=== PATIENT | female | born 1995 | race Caucasian/White ===

== ENCOUNTER → 2017-01-31 | Outpatient (REF) | payer BC | LOC: M LAB REF 16:25 | PROVIDERS: ATTEND Physician Assistant | DX: J02.9 Acute pharyngitis, unspecified (principal) ==

== ENCOUNTER → 2017-09-29 | Outpatient (REF) | payer BC | LOC: M SFHCWAGY 11:54 | PROVIDERS: ATTEND Nurse Practitioner Women's Health | DX: Z12.4 Encounter for screening for malignant neoplasm of cervix (principal) ==

== ENCOUNTER → 2017-11-04 | Outpatient (REF) | payer BC ==
[2017-11-04 14:07] LABS: BASO % 0.3 % (0.0-1.0); EOS # 0.2 10^3/uL (0.0-0.50); EOS % 2.1 % (0.0-3.0); HEMATOCRIT 42.5 % (36.0-47.0); HEMOGLOBIN 14.4 g/dl (12.0-16.0); IMMATURE GRANULOCYTE % 0.1 % (0-0); LYMPH # 2.3 10^3/uL (1.5-6.5); LYMPH % 31.6 % (24.0-44.0); MEAN CORPUSCULAR HEMOGLOBIN 29.8 pg (27.0-33.0); MEAN CORPUSCULAR HGB CONC 33.9 g/dl (32.0-36.5); MEAN CORPUSCULAR VOLUME 87.8 fl (80.0-96.0); MONO # 0.5 10^3/uL (0.0-0.8); MONO % 6.7 % (0.0-5.0); NEUTROPHILS # 4.2 10^3/uL (1.8-7.7); NEUTROPHILS % 59.2 % (36.0-66.0); PLATELET COUNT, AUTOMATED 244 10^3/uL (150-450); RED BLOOD COUNT 4.84 10^6/uL (4.00-5.40); RED CELL DISTRIBUTION WIDTH 11.9 % (11.5-14.5); WHITE BLOOD COUNT 7.2 10^3/uL (4.0-10.0)
[2017-11-04 14:45] LABS: ALBUMIN 4.2 GM/DL (3.2-5.2); ALBUMIN/GLOBULIN RATIO 1.35 (1.00-1.93); ALKALINE PHOSPHATASE 55 U/L (45-117); ALT/SGPT 24 U/L (12-78); ANION GAP 6 MEQ/L (8-16); AST/SGOT 11 U/L (7-37); BILIRUBIN,TOTAL 0.5 MG/DL (0.2-1.0); BLOOD UREA NITROGEN 10 MG/DL (7-18); CARBON DIOXIDE LEVEL 30 MEQ/L (21-32); CHLORIDE LEVEL 106 MEQ/L (98-107); CREATININE FOR GFR 0.72 MG/DL (0.55-1.02); FREE T4 1.23 NG/DL (0.76-1.46); GLOMERULAR FILTRATION RATE > 60.0 (>60); GLUCOSE, FASTING 74 MG/DL (70-100); MAGNESIUM LEVEL 2.3 MG/DL (1.8-2.4); POTASSIUM SERUM 3.9 MEQ/L (3.5-5.1); SODIUM LEVEL 142 MEQ/L (136-145); TOTAL PROTEIN 7.3 GM/DL (6.4-8.2)
== END ==
LOC: M SFHCPLAZ 11:08
DX: R19.7 Diarrhea, unspecified (principal); R00.2 Palpitations; F41.9 Anxiety disorder, unspecified
CPT/HCPCS: 83735

== ENCOUNTER → 2018-11-28 | Outpatient (REF) | payer OTHER ==
[2018-11-28 16:21] LABS: HEMATOCRIT 43.8 % (36.0-47.0); HEMOGLOBIN 14.6 g/dl (12.0-15.5); MEAN CORPUSCULAR HGB CONC 33.3 g/dl (32.0-36.5); MEAN CORPUSCULAR VOLUME 87.1 fl (80.0-96.0); PLATELET COUNT, AUTOMATED 281 10^3/uL (150-450); RED BLOOD COUNT 5.03 10^6/uL (4.00-5.40); WHITE BLOOD COUNT 10.9 10^3/uL (4.0-10.0)
[2018-11-28 16:23] LABS: ALBUMIN 3.9 GM/DL (3.2-5.2); ALT/SGPT 34 U/L (12-78); BILIRUBIN,TOTAL 0.3 MG/DL (0.2-1.0); BLOOD UREA NITROGEN 13 MG/DL (7-18); CALCIUM LEVEL 8.6 MG/DL (8.5-10.1); CARBON DIOXIDE LEVEL 26 MEQ/L (21-32); CHLORIDE LEVEL 106 MEQ/L (98-107); CREATININE FOR GFR 0.73 MG/DL (0.55-1.30); FREE T4 0.98 NG/DL (0.76-1.46); GLOMERULAR FILTRATION RATE > 60.0 (>60); GLUCOSE, FASTING 112 MG/DL (70-100); POTASSIUM SERUM 4.3 MEQ/L (3.5-5.1); SODIUM LEVEL 140 MEQ/L (136-145); TOTAL 25(OH) VITAMIN D 18.4 NG/ML (30.0-100.0); TOTAL PROTEIN 7.2 GM/DL (6.4-8.2)
== END ==
LOC: M SFHCPLAZ 13:25
PROVIDERS: ATTEND Physician Assistant
DX: F41.9 Anxiety disorder, unspecified (principal); E55.9 Vitamin D deficiency, unspecified

== ENCOUNTER → 2020-06-25 | Outpatient (REF) | payer OTHER ==
[2020-06-25 17:37] LABS: BASO % 0.2 % (0.0-1.0); EOS # 0.1 10^3/uL (0.0-0.5); EOS % 0.5 % (0.0-3.0); HEMATOCRIT 40.5 % (36.0-47.0); HEMOGLOBIN 13.8 g/dl (12.0-15.5); MEAN CORPUSCULAR HEMOGLOBIN 30.2 pg (27.0-33.0); MEAN CORPUSCULAR HGB CONC 34.1 g/dl (32.0-36.5); MEAN CORPUSCULAR VOLUME 88.6 fl (80.0-96.0); MONO # 0.8 10^3/uL (0.0-0.8); MONO % 6.2 % (0.0-5.0); NEUTROPHILS # 8.9 10^3/uL (1.5-8.5); NEUTROPHILS % 69.8 % (36.0-66.0); PLATELET COUNT, AUTOMATED 286 10^3/uL (150-450); RED BLOOD COUNT 4.57 10^6/uL (4.00-5.40); WHITE BLOOD COUNT 12.8 10^3/uL (4.0-10.0)
[2020-06-25 18:55] LABS: HEPATITIS B SURFACE ANTIGEN NEGATIVE (NEGATIVE); HEPATITIS C VIRUS ABY INDEX 0.1 INDEX (<0.8); HIV 1&2 SCREEN CENTAUR NEGATIVE (NEGATIVE)
[2020-06-25 19:11] LABS: CHLAMYDIA DNA AMPLIFICATION NEGATIVE (NEGATIVE); GC DNA AMPLIFICATION NEGATIVE (NEGATIVE)
== END ==
LOC: M SFHCWAGY 16:48
PROVIDERS: ATTEND Specialist
DX: Z34.01 Encounter for supervision of normal first pregnancy, first trimester (principal); Z3A.00 Weeks of gestation of pregnancy not specified

== ENCOUNTER → 2020-09-18 | Outpatient (CLI) | payer OTHER ==
--- NOTE | 2020-09-18 16:10 | REP ---
INDICATION: ANATOMY. COMPARISON: None. TECHNIQUE: Multiple ultrasonographic images. FINDINGS: There is a single intrauterine gestation in a breech presentation. The placenta is anterior and grade 1. There is no placenta previa. The placental course frank cord insertion is in the mid placenta. The cord insertion is unremarkable. There are 3 vessels in the cord. The cervix measures 3.4 cm in length. The composite ultrasound gestational age is 22 weeks 2 days. The SHAUN is 01/20/2021. The weight is 459 g, 1 lb 0 oz. This is the 53rd percentile for 21 weeks 5 days. The following anatomic structures are identified and are unremarkable: Cranium, cavum septum pellucidum, falx, intracranial ventricles, choroid plexus, cerebellum, cisterna magna, facial profile, upper lip, cardiac rhythm, right and left ventricular outflow tracts, diaphragm, stomach, abdominal wall, right and left kidneys, bladder, spine, right and left upper extremities, right and left lower extremities, 3 vessel cord. On the four-chamber view of the heart an echogenic focus is identified within the left ventricle. This is usually artifact from the chorda tendineae. The four-chamber view of the heart is otherwise unremarkable. IMPRESSION: No anomalies are identified. The echogenic focus in the cardiac left ventricle is usually artifact from the chordae tendineae. <Electronically signed by Carlos Elias > 09/18/20 [id number]
== END ==
LOC: M WHC 14:07
PROVIDERS: ATTEND Advanced Practice Midwife
DX: Z34.92 Encounter for supervision of normal pregnancy, unspecified, second trimester (principal); Z3A.22 22 weeks gestation of pregnancy

== ENCOUNTER → 2020-10-27 | Outpatient (REF) | payer OTHER ==
[2020-10-27 13:39] LABS: HEMATOCRIT 41.5 % (36.0-47.0); HEMOGLOBIN 13.5 g/dl (12.0-15.5); MEAN CORPUSCULAR HEMOGLOBIN 30.3 pg (27.0-33.0); MEAN CORPUSCULAR HGB CONC 32.5 g/dl (32.0-36.5); MEAN CORPUSCULAR VOLUME 93.3 fl (80.0-96.0); PLATELET COUNT, AUTOMATED 280 10^3/uL (150-450); RED BLOOD COUNT 4.45 10^6/uL (4.00-5.40); WHITE BLOOD COUNT 14.2 10^3/uL (4.0-10.0)
== END ==
LOC: M PLALAB 09:16
PROVIDERS: ATTEND Advanced Practice Midwife
DX: Z3A.26 26 weeks gestation of pregnancy (principal)

== ENCOUNTER → 2020-12-24 | Outpatient (REF) | payer OTHER | LOC: M PLALAB 10:34 | PROVIDERS: ATTEND Obstetrics & Gynecology | DX: Z3A.35 35 weeks gestation of pregnancy (principal) ==

== ENCOUNTER → 2021-01-07 | Outpatient (REF) | payer BC ==
[2021-01-07 17:48] LABS: HEMATOCRIT 42.1 % (36.0-47.0); HEMOGLOBIN 13.9 g/dl (12.0-15.5); MEAN CORPUSCULAR HEMOGLOBIN 29.3 pg (27.0-33.0); MEAN CORPUSCULAR VOLUME 88.6 fl (80.0-96.0); PLATELET COUNT, AUTOMATED 240 10^3/uL (150-450); RED BLOOD COUNT 4.75 10^6/uL (4.00-5.40); WHITE BLOOD COUNT 13.7 10^3/uL (4.0-10.0)
[2021-01-07 18:04] LABS: ALT/SGPT 42 U/L (12-78); BILIRUBIN,TOTAL 0.2 MG/DL (0.2-1.0); CREATININE FOR GFR 0.61 MG/DL (0.55-1.30); GLOMERULAR FILTRATION RATE > 60.0 (>60); LDH LACTATE DEHYDROGENASE 230 U/L (84-246); URIC ACID 3.9 MG/DL (2.6-6.0)
[2021-01-07 18:07] LABS: TOTAL PROTEIN,RANDOM URINE 33.6 MG/DL (0.0-12.0)
== END ==
LOC: M PLALAB 14:52
PROVIDERS: ATTEND Advanced Practice Midwife
DX: O12.03 Gestational edema, third trimester (principal)

== ENCOUNTER → 2021-01-17 | Outpatient (CLI) | payer BC | LOC: M LABSMTC 11:37 | PROVIDERS: ATTEND Specialist | DX: Z20.822 Contact with and (suspected) exposure to COVID-19 (principal) ==

== ENCOUNTER 2021-01-23 15:28 | Inpatient (IN) | payer BC, OTHER ==
[2021-01-23] VITALS (13 sets, daily range): BP systolic 115–139; BP diastolic 69–90
[~2021-01-23] VITALS: Ht 170.2 cm; Wt 95.1 kg
[2021-01-23] MEDS ORDERED: PRENTAB9 PO (15:57)
[2021-01-23 17:13] LABS: HEMATOCRIT 43.6 % (36.0-47.0); HEMOGLOBIN 14.5 g/dl (12.0-15.5); MEAN CORPUSCULAR HEMOGLOBIN 29.4 pg (27.0-33.0); MEAN CORPUSCULAR HGB CONC 33.3 g/dl (32.0-36.5); MEAN CORPUSCULAR VOLUME 88.3 fl (80.0-96.0); PLATELET COUNT, AUTOMATED 211 10^3/uL (150-450); RED BLOOD COUNT 4.94 10^6/uL (4.00-5.40); WHITE BLOOD COUNT 15.1 10^3/uL (4.0-10.0)
--- NOTE | 2021-01-23 17:46 | HPEPDOC ---
Obstetrical History & Physical General Date of Admission Jan 23, 2021 at 15:28 History of Present Illness Chief Complaint: Contractions, term, LOF, term Information Provided By: Patient Age: 25 : 1 Term: 0 Pre-term: 0 Abortions: 0 Livin Care Care: Good Care Dating Final EDC: Jan 24, 2021 Final EDC by: LMP EGA at Admission: 39 (+6) Antepartum Course Admission Weight (lbs.): 209 Past Medical History Past Obstetrical History : Past Obstetrical History: Primgravida [employer]ER History: No pertinent history Past Medical History Surgical History: Tonsilectomy, [place] teeth Family History Significant Family History: Cancer, Hypertension, Hyperlipidemia Social History Marital Status: Family situation: Spouse/partner home Psychosocial History: Anxiety * Smoker: non-smoker Alcohol: Denies Drugs: denies Abuse Violence Screening Have you been hit/kicked/slapp: No Have you been sexually assault: No Imunizations Tdap status: current Allergies Coded Allergies: No Known Allergies (Verified Allergy, Unknown, 01/23/21) Medications Scheduled No.137/Iron/Folic Acd ( Vitamin Tablet) 1 Each Tablet, 1 TAB PO DAILY Physical Examination Physical Examination GENERAL: Alert and oriented times three. BREAST: . ABDOMEN: Gravid and non-tender to touch. FETUS: Is vertex (VTX) by sterile vaginal examination (SVE), fetus is vertex (VTX) by Jose and bedside sono. EFW 8# HEART RATE: Regular rate and rhythm. LUNGS: Clear to auscultation (CTA). EXTREMITIES: No edema. No clonus. Deep tendon reflexes (DTRs) + 2. Vital Signs/I&O Vital Signs Date Time Temp Pulse Resp B/P (MAP) Pulse Ox O2 Delivery O2 Flow Rate FiO2 01/23/21 16:54 72 18 119/73 (88) 01/23/21 15:51 99.0 Laboratory Data 24H LABS Laboratory Tests 2 01/23/21 15:42: Serology Scanned Report Hepatitis B Testing 01/23/21 16:47: Nucleated Red Blood Cells % (auto) 0.0 CBC/BMP Laboratory Tests 01/23/21 16:47 Pertinent Laboratoy Data Blood Type: A+ RBC Antibody Screen: Negative HIV: Negative Hepatitis B: Negative Hepatitis C: Negative Rapid Plasma Reagin: Nonreactive Rubella: Immune Chlamydia/Gonorrhea: Negative Group B Streptococcus: Negative Glucose Tolerance Test: 84 Diag/Inter Therapy Panorama low risk male, COVID negative 01/17 Anatomy Ultrasound Ultrasound Date: Sep 18, 2020 Placenta Location: Anterior Normal Anatomy: Yes Placenta Previa: No Estimated Weight (grams): 459 (53%) Steroid Therapy Steroid Therapy: No Vaginal Examination Dilation: 1cm Effacement: 50% Station: -3 Cervical Consistency: Medium Cervical Position: Posterior Presentation: Cephalic presentation Assessment Heart Rate (FHR): 135 Variability: Moderate Accelerations: Positive Decelerations: None Tocometer Contractions: Yes Frequency: irregular Strength: palpated as mild Assessment/Plan Assessment Jamia is a 25-year-old (G)1 para (P)0-0-0-0 at 39+6 weeks by 1st trimester ultrasound. Presents to Labor and Delivery (L&D) with reports of UC starting 1200 with LOF 1230. Thick meconium stained fluid noted. Plan Admit and orient. 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 NICU notified about meconium Diet: Regular, then clear liquids. Group B Streptococcus (GBS) negative Labs and intravenous (IV) per unit protocol. Counseled on Pitocin and induction of labor (IOL). Lactated Ringers (LR): Bolus 500 mL, then at 125 mL/hr. Considering epidural Anticipate normal spontaneous delivery (). C-S as appropriate. Rubi Shaffer CNM Jan 23, 2021 17:43
[2021-01-23] MEDS ORDERED: OXYTOCIN DRIP 30 UNITS in IV 1 EA IV SCH (18:00)
[2021-01-23] MEDS ORDERED: LR 1,000 ML IV SCH (18:00)
[2021-01-23] MEDS ORDERED: METHYLERGONOVINE MALEATE 0.2 MG/ML VIAL (J2210) IM PRN (18:15)
[2021-01-23] MEDS ORDERED: OXYTOCIN DRIP 30 UNITS in IV 1 EA IV PRN (18:15)
[2021-01-23] MEDS ORDERED: LIDOCAINE 1% MDV 20ML VIAL INFIL PRN (18:15)
[2021-01-23] MEDS: LR 1,000 ML IV SCH ×2 (19:51→22:53)
[2021-01-23] MEDS ORDERED: BUTORPHANOL 2 MG/ML INJ (J0595) IV ONE (23:10)
[2021-01-23] MEDS ORDERED: PROMETHAZINE INJ 25 MG/ML VIAL (J2550) IV ONE (23:10)
--- NOTE | 2021-01-23 23:13 | IPNPDOC ---
Text Note Date of Service The patient was seen on 01/23/21. NOTE Progress Requesting something to help her relax but undecided about IV vs epidural. Pitocin @ 6mu UC 2-6minutes x 45-60 seconds FH 135, Cat I SVE /-2, more anterior Desires stadol at this time. VS,Fishbone, I+O VS, Fishbone, I+O Laboratory Tests 01/23/21 16:47 Vital Signs Date Time Temp Pulse Resp B/P (MAP) Pulse Ox O2 Delivery O2 Flow Rate FiO2 01/23/21 21:24 71 18 122/79 (93) 01/23/21 19:51 98.1 Rubi Shaffer CNM Jan 23, 2021 23:13
[2021-01-24] VITALS (10 sets, daily range): BP systolic 115–137; BP diastolic 61–83
[2021-01-24] MEDS ORDERED: DOCUSATE SODIUM 100MG CAPSULE PO PRN (04:40)
[2021-01-24] MEDS ORDERED: IBUPROFEN 800 MG TAB PO PRN (04:40)
[2021-01-24] MEDS ORDERED: ACETAMINOPHEN TAB 650MG DOSE (2X325MG) PO PRN (04:40)
[2021-01-24] MEDS ORDERED: ACETAMINOPHEN 500 MG TAB PO PRN (04:40)
[2021-01-24] MEDS ORDERED: METHYLERGONOVINE MALEATE 0.2 MG TAB PO PRN (04:40)
[2021-01-24] MEDS ORDERED: MOM 30ML SUSPENSION UDC PO PRN (04:40)
[2021-01-24] MEDS ORDERED: RHOGAM 300 MCG (1500 IU) INJ (J2790) IM SCH (04:40)
[2021-01-24] MEDS ORDERED: MEASLES,MUMPS,RUBELLA VACCINE INJ (MMR-II) (90707) SC SCH (04:40)
--- NOTE | 2021-01-24 04:47 | DNPDOC ---
[facility] Delivery Note Delivery Note DATE OF DELIVERY: 01/24/2021 PREDELIVERY DIAGNOSIS: 40-0/7 weeks' gestation and labor. POST DELIVERY DIAGNOSIS: Delivered. PROCEDURE: Spontaneous vaginal delivery. PROVIDER: Rubi Shaffer CNM ANESTHESIA: Lidocaine for repair. ESTIMATED BLOOD LOSS: 400 mL. FINDINGS: 7 pound 4 ounce, 3300gm male infant, Score 8/9, no nuchal cord. DELIVERY SUMMARY: Patient is a 25-year-old 1 now para 1-0-0-1 who was admitted to labor and delivery for augmentation of labor due to premature rupture of membranes with thick meconium. She received pitocin and labor did progress. She utilized stadol and phenergan for coping. Fully dilated 0256. Viable male delivered STORM-ROP @ 0338, shoulders delivered with ease. Bulb suctioned the lupe and nasopharynx prior to delivery. Spontaneous respirations with stimulation, transitioned on maternal abdomen. Cord doubly clamped and cut by FOB under my direction. Apgars 8/9. Placenta masters, intact with 3v cord @ 0347. Fundus firmed with massage and IV bolus of premixed pitocin. 2nd degree perineal laceration with right sulcus laceration infiltrated with lidocaine. Reapproximated with 3-0 vicryl rapide. EBL 400ml. Sponge, sharp and instrument count correct. Rubi Shaffer CNM Jan 24, 2021 04:47
[2021-01-24] MEDS: IBUPROFEN 600MG TAB PO PRN ×2 (05:48→16:05)
[2021-01-24] MEDS: PRENATAL VITAMINS CHEWABLE TABLET PO SCH (10:06)
[2021-01-24] MEDS: DIBUCAINE 1% OINTMENT 30GM TOP PRN (11:32)
[2021-01-25] MEDS: DIBUCAINE 1% OINTMENT 30GM TOP PRN (05:13)
[2021-01-25] MEDS: IBUPROFEN 600MG TAB PO PRN ×2 (05:13→17:59)
[2021-01-25 05:51] VITALS: BP 103/62
[2021-01-25] MEDS: PRENATAL VITAMINS CHEWABLE TABLET PO SCH (08:45)
--- NOTE | 2021-01-25 12:51 | IPNPDOC ---
Progress Note Date of Service: Jan 25, 2021 Day#: 1 Progress Note SUBJECT: Doing well without complaints. Ambulating, voiding and pain is well-c ontrolled. Reports minimal lochia. OBJECTIVE: VITAL SIGNS: Within normal limits, afebrile. Alert and oriented times three. Abdomen: Fundus firm at U-2. Soft, NTTP. Ext: neg calf tenderness. ASSESSMENT: day #1 status post . Recovering in stable condition. PLAN: 1. Continue routine care 2. Discharge plans for tomorrow VS, I&O, 24H, Fishbone Vital Signs/I&O Vital Signs Date Time Temp Pulse Resp B/P (MAP) Pulse Ox O2 Delivery O2 Flow Rate FiO2 01/25/21 05:51 98.8 74 16 103/62 (76) 01/24/21 17:59 96 Room Air I&O- Last 24 Hours up to 6 AM 01/25/21 06:00 Intake Total 3786 ml Balance 3786 ml GLENNA STEWART MD. Jan 25, 2021 12:51
[2021-01-25 18:00] VITALS: BP 123/61
[2021-01-26 06:00] VITALS: BP 110/58
[2021-01-26] MEDS: PRENATAL VITAMINS CHEWABLE TABLET PO SCH (07:55)
== END 2021-01-26 10:40 | disposition home or self-care (01) | DRG 560 ==
LOC: M LDI 15:28 → EEVIPCON 15:28 → M LDI 15:29 → M OBS 01-24 05:30
PROVIDERS: ADMIT Advanced Practice Midwife; ATTEND Advanced Practice Midwife
PROC: 10E0XZZ Delivery of Products of Conception, External Approach (ICD-10-PCS; principal; 2021-01-24)
PROC: 0KQM0ZZ Repair Perineum Muscle, Open Approach (ICD-10-PCS; 2021-01-24)
DX: O77.0 Labor and delivery complicated by meconium in amniotic fluid (principal); O42.02 Full-term premature rupture of membranes, onset of labor within 24 hours of rupture; Z37.0 Single live birth; Z3A.39 39 weeks gestation of pregnancy; O70.1 Second degree perineal laceration during delivery

== ENCOUNTER → 2022-05-26 | Outpatient (REF) | payer BC, OTHER ==
[~2022-05-26] MED LIST: PRENTAB9 PO
[2022-05-26 13:15] LABS: RSV AMPLIFICATION NEGATIVE (NEGATIVE)
== END ==
LOC: M WUC 12:20
PROVIDERS: ATTEND Physician Assistant
DX: R50.9 Fever, unspecified (principal)

== ENCOUNTER → 2022-06-16 | Outpatient (CLI) | payer BC, OTHER | LOC: M PLALAB 11:16 | PROVIDERS: ATTEND Advanced Practice Midwife | DX: O20.0 Threatened abortion (principal) ==

== ENCOUNTER → 2022-06-17 | Outpatient (CLI) | payer BC, OTHER | LOC: M WHC 07:08 | PROVIDERS: ATTEND Physician Assistant | DX: Z36.9 Encounter for antenatal screening, unspecified (principal); Z3A.01 Less than 8 weeks gestation of pregnancy ==

== ENCOUNTER → 2022-09-27 | Outpatient (CLI) | payer BC, OTHER ==
[2022-09-27 17:46] LABS: MEAN CORPUSCULAR HEMOGLOBIN 28.9 pg (27.0-33.0); MEAN CORPUSCULAR HGB CONC 33.3 g/dl (32.0-36.5); MEAN CORPUSCULAR VOLUME 86.6 fl (80.0-96.0); PLATELET COUNT, AUTOMATED 310 10^3/uL (150-450); RED BLOOD COUNT 4.85 10^6/uL (4.00-5.40); WHITE BLOOD COUNT 14.1 10^3/uL (4.0-10.0)
[2022-09-27 18:32] LABS: GC DNA AMPLIFICATION NEGATIVE (NEGATIVE)
[2022-09-27 18:48] LABS: HEPATITIS C VIRUS ABY INDEX 0.1 INDEX (<0.8)
[2022-09-27 18:50] LABS: HIV 1&2 SCREEN CENTAUR NEGATIVE (NEGATIVE)
== END ==
LOC: M PLALAB 16:07
PROVIDERS: ATTEND Obstetrics & Gynecology
DX: Z34.81 Encounter for supervision of other normal pregnancy, first trimester (principal)

== ENCOUNTER → 2022-10-01 | Outpatient (CLI) | payer BC, OTHER | LOC: M PLALAB 09:26 | PROVIDERS: ATTEND Obstetrics & Gynecology | DX: Z34.81 Encounter for supervision of other normal pregnancy, first trimester (principal) ==

== ENCOUNTER → 2022-11-26 | Outpatient (CLI) | payer BC, OTHER | LOC: M WHC 07:56 | PROVIDERS: ATTEND Specialist | DX: Z34.82 Encounter for supervision of other normal pregnancy, second trimester (principal); Z36.89 Encounter for other specified antenatal screening; Z3A.19 19 weeks gestation of pregnancy ==

== ENCOUNTER → 2023-01-05 | Outpatient (CLI) | payer BC, OTHER | LOC: M WHC 06:53 | PROVIDERS: ATTEND Obstetrics & Gynecology | DX: Z34.02 Encounter for supervision of normal first pregnancy, second trimester (principal); Z36.2 Encounter for other antenatal screening follow-up; Z3A.25 25 weeks gestation of pregnancy ==

== ENCOUNTER → 2023-01-18 | Outpatient (CLI) | payer BC, OTHER ==
[2023-01-18 14:09] LABS: HEMATOCRIT 38.1 % (36.0-47.0); HEMOGLOBIN 12.3 g/dl (12.0-15.5); MEAN CORPUSCULAR HEMOGLOBIN 28.7 pg (27.0-33.0); MEAN CORPUSCULAR HGB CONC 32.3 g/dl (32.0-36.5); PLATELET COUNT, AUTOMATED 313 10^3/uL (150-450); RED BLOOD COUNT 4.28 10^6/uL (4.00-5.40); WHITE BLOOD COUNT 14.9 10^3/uL (4.0-10.0)
[2023-01-18 15:45] LABS: GC DNA AMPLIFICATION NEGATIVE (NEGATIVE)
== END ==
LOC: M PLALAB 08:39
PROVIDERS: ATTEND Obstetrics & Gynecology
DX: Z36.9 Encounter for antenatal screening, unspecified (principal)

== ENCOUNTER → 2023-03-23 | Outpatient (REF) | payer OTHER | LOC: M PLALAB 13:09 | PROVIDERS: ATTEND Advanced Practice Midwife | DX: Z34.80 Encounter for supervision of other normal pregnancy, unspecified trimester (principal) ==

== ENCOUNTER 2023-04-23 08:10 | Inpatient (IN) | payer BC, OTHER ==
[~2023-04-23] VITALS: Ht 170.2 cm; Wt 106.0 kg
[2023-04-23] VITALS (19 sets, daily range): BP systolic 107–138; BP diastolic 57–95
[2023-04-23] MEDS ORDERED: TUMS500C PO (08:28)
[2023-04-23 09:14] LABS: HEMATOCRIT 33.9 % (36.0-47.0); HEMOGLOBIN 10.8 g/dl (12.0-15.5); MEAN CORPUSCULAR HEMOGLOBIN 24.8 pg (27.0-33.0); MEAN CORPUSCULAR HGB CONC 31.9 g/dl (32.0-36.5); MEAN CORPUSCULAR VOLUME 77.9 fl (80.0-96.0); PLATELET COUNT, AUTOMATED 273 10^3/uL (150-450); RED BLOOD COUNT 4.35 10^6/uL (4.00-5.40); WHITE BLOOD COUNT 13.9 10^3/uL (4.0-10.0)
[2023-04-23] MEDS ORDERED: LR 1,000 ML IV SCH (09:25)
[2023-04-23] MEDS ORDERED: LACTATED RINGER'S 1000 ML IV STA (09:25)
[2023-04-23] MEDS ORDERED: OXYTOCIN DRIP 30 UNITS in IV 1 EA IV PRN (09:25)
[2023-04-23] MEDS ORDERED: CARBOPROST TROMETHAMINE 250 MCG/ML AMP IM PRN (09:25)
[2023-04-23] MEDS ORDERED: METHYLERGONOVINE MALEATE 0.2MG/ML 1ML VIAL IM PRN (09:25)
[2023-04-23] MEDS ORDERED: LIDOCAINE 1% MDV 20ML VIAL INFIL PRN (09:25)
[2023-04-23] MEDS ORDERED: TRANEXAMIC ACID INJection 1,000 MG in NS 100 ML IV PRN (09:25)
[2023-04-23] MEDS: miSOPROStol 50MCG 1/2 TABLET SL SCH ×2 (09:43→14:08)
[2023-04-23] MEDS ORDERED: OXYTOCIN DRIP 30 UNITS in IV 1 EA IV SCH (19:45)
[2023-04-23] MEDS ORDERED: PROMETHAZINE 25MG/ML 1ML VIAL IV ONE (23:00)
[2023-04-23] MEDS ORDERED: NALBUPHINE HCL 10 MG/ML 1ML AMP IV ONE (23:00)
[2023-04-24] VITALS (7 sets, daily range): BP systolic 98–136; BP diastolic 57–80; O2SAT 95–97
[2023-04-24] MEDS ORDERED: RHOGAM 300MCG (1500IU) INJ IM SCH (01:35)
[2023-04-24] MEDS ORDERED: IBUPROFEN 600MG TAB PO PRN (01:35)
[2023-04-24] MEDS ORDERED: IBUPROFEN 800 MG TAB PO PRN (01:35)
[2023-04-24] MEDS ORDERED: ACETAMINOPHEN TAB 650MG DOSE (2X325MG) PO PRN (01:35)
[2023-04-24] MEDS ORDERED: METHYLERGONOVINE MALEATE 0.2 MG TAB PO PRN (01:35)
[2023-04-24] MEDS ORDERED: DOCUSATE SODIUM 100MG CAPSULE PO PRN (01:35)
[2023-04-24] MEDS: PRENATAL VITAMINS CHEWABLE TABLET PO SCH (08:25)
[2023-04-24] MEDS: ACETAMINOPHEN 500 MG TAB PO PRN ×2 (08:25→15:34)
[2023-04-24] MEDS: DIBUCAINE 1% OINTMENT 30GM TOP PRN (20:02)
[2023-04-25 06:00] VITALS: BP 96/60; O2SAT 97
[2023-04-25] MEDS: ACETAMINOPHEN 500 MG TAB PO PRN (06:24)
[2023-04-25] MEDS: DIBUCAINE 1% OINTMENT 30GM TOP PRN (08:22)
[2023-04-25] MEDS: PRENATAL VITAMINS CHEWABLE TABLET PO SCH (08:22)
[2023-04-25] MEDS ORDERED: IBUP80TA PO (10:52)
[2023-04-25] MEDS ORDERED: ACET-683 PO (10:52)
[2023-04-26] MEDS ORDERED: MEASLES,MUMPS,RUBELLA VACCINE INJ (MMR-II) SC.IMMUN ONE (09:00)
== END 2023-04-25 14:15 | disposition home or self-care (01) | DRG 560 ==
LOC: M LDI 08:10 → M OBS 04-24 02:35
PROVIDERS: ADMIT Obstetrics & Gynecology; ATTEND Obstetrics & Gynecology
PROC: 3E0P7GC Introduction of Other Therapeutic Substance into Female Reproductive, Via Natural or Artificial Opening (ICD-10-PCS; 2023-04-23)
PROC: 10E0XZZ Delivery of Products of Conception, External Approach (ICD-10-PCS; principal; 2023-04-24)
PROC: 0KQM0ZZ Repair Perineum Muscle, Open Approach (ICD-10-PCS; 2023-04-24)
DX: O48.0 Post-term pregnancy (principal); O70.1 Second degree perineal laceration during delivery; Z3A.40 40 weeks gestation of pregnancy; Z37.0 Single live birth

== ENCOUNTER → 2023-08-24 | Outpatient (REF) | payer OTHER ==
[~2023-08-24] MED LIST changes: +ACET-683 PO; +IBUP80TA PO; +TUMS500C PO
== END ==
LOC: M PLALAB 13:50
PROVIDERS: ATTEND Obstetrics & Gynecology
DX: Z12.4 Encounter for screening for malignant neoplasm of cervix (principal)

== ENCOUNTER → 2025-05-31 | Outpatient (REF) | payer OTHER | LOC: M LAB REF 14:59 | PROVIDERS: ATTEND Family Medicine | DX: L02.214 Cutaneous abscess of groin (principal) ==